=== PATIENT | male | born 1975 | race Caucasian/White ===

== ENCOUNTER 2020-12-03 11:42 | Outpatient (CLI) | payer OTHER, SELFPAY | END 2020-12-03 11:43 | disposition home or self-care (01) | LOC: ANHCOVIDVC 11:42 | PROVIDERS: PCP Family Medicine | DX: Z23 Encounter for immunization (principal) | CPT/HCPCS: 0001A; 91300 ==

== ENCOUNTER 2020-12-24 11:53 | Outpatient (CLI) | payer OTHER, SELFPAY | END 2020-12-24 11:54 | disposition home or self-care (01) | LOC: ANHCOVIDVC 11:53 | PROVIDERS: PCP Family Medicine | DX: Z23 Encounter for immunization (principal) | CPT/HCPCS: 0002A; 91300 ==

== ENCOUNTER 2022-08-24 16:55 | Emergency (ER) | payer OTHER, SELFPAY ==
[2022-08-24 17:06] VITALS: BP 135/104; PULSE 73; RESP 16; TEMP 37.3; O2SAT 100
--- NOTE | 2022-08-24 17:11 | ED.URI ---
HPI - URI/Sore Throat General Chief Complaint: Upper Respiratory Infection Stated Complaint: + COVID/SWOLLEN TONSILS Time Seen by Provider: 08/24/22 17:05 Source: patient Mode of arrival: ambulatory Limitations: no limitations History of Present Illness HPI Narrative: Patel is a 47-year-old male patient presenting to the clinic today with complaints of sore throat x2 days. He reports his sore throat developed yesterday. Tested positive for COVID on . He denies any current fever or chills. He does have slight cough and congestion MD elicited complaint: sore throat and nasal congestion Related Data Home Medications Medication Instructions Recorded Confirmed bupropion HCl 300 mg 24 hr tablet, 300 mg PO QAM 05/01/20 11/04/21 extended release (Wellbutrin XL) lithium carbonate 300 mg capsule 300 mg PO BID 05/01/20 11/04/21 buspirone 15 mg tablet 30 mg PO BID 05/06/21 11/04/21 Allergies Allergy/AdvReac Type Severity Reaction Status Date / Time No Known Allergies Allergy Verified 08/24/22 17:13 Review of Systems Review of Systems: Pertinent positives per HPI. Patient denies any fever, chills, rash, headache, visual changes, dizziness, shortness of breath, chest pain, palpitations, nausea, vomiting, diarrhea, constipation, abdominal pain, or any urinary issues. PMFSH Surgical History Surgical History [place] teeth extracted Family History Family History Father Family history of transient ischemic attacks, Onset Age: 40 Family history of cardiovascular disease Acute myocardial infarction, Onset Age: 50 Diabetes mellitus Depression Hypertension Family history of elevated blood lipids Cerebrovascular accident Family history of coronary artery disease Mother Patient's mother is in good health Social History Social History Smoking status: Never smoker Alcohol intake: current Comments At the time of my signature, I reviewed and agree with the nursing past medical, surgical, social, and family history. There is no relevant family history pertinent to the patient complaint. Exam Narrative: General: Well-developed, well nourished, in no apparent distress Head: Normocephalic, atraumatic Eyes: Pupils equally round and reactive to light bilaterally, EOM intact, sclera and conjunctive clear, no discharge, lids normal Ears: TMs intact and clear, ear canals clear, no drainage, grossly hearing normal. Nose: Nares patent, clear nasal discharge, no inflammation, no sinus tenderness. Mouth: Oral pharynx without lesions or masses, good dentition, MMM. Oropharynx red with unilateral tonsillar swelling without exudate, uvula midline Neck: Supple, trachea midline, enlargement of left anterior cervical nodes, no thyroid masses or goiter palpable. Cardio: Regular rate and rhythm, s1 and s2 normal, no murmur appreciated. Resp: Clear to auscultation bilaterally, no rhonchi, rales, wheezing or rubs Course Course Emergency Course: Portions of this record may have been created with voice recognition software. Level of Care: Express Care Visit Vital Signs Vital signs: Vital Signs Temperature 37.3 C 08/24/22 17:06 Pulse Rate 73 08/24/22 17:06 Respiratory Rate 16 08/24/22 17:06 Blood Pressure 135/104 H 08/24/22 17:06 Pulse Oximetry 100 08/24/22 17:06 Temperature 37.3 C 08/24/22 17:06 Pulse Rate 73 08/24/22 17:06 Respiratory Rate 16 08/24/22 17:06 Blood Pressure 135/104 H 08/24/22 17:06 Pulse Oximetry 100 08/24/22 17:06 Vital signs reviewed MDM - URI/Sore Throat MDM Narrative Medical decision making narrative: At the time of visit patient is resting comfortably on the exam table. He has unilateral tonsillar swelling/oropharynx redness. Uvula is midline. I suspect the patient has viral pharyngitis
== END 2022-08-24 17:25 | disposition home or self-care (01) ==
PROVIDERS: Emergency Provider Nurse Practitioner Family; PCP Family Medicine
DX: U07.1 COVID-19 (principal); J02.9 Acute pharyngitis, unspecified; E78.00 Pure hypercholesterolemia, unspecified; F41.9 Anxiety disorder, unspecified; F31.9 Bipolar disorder, unspecified
CPT/HCPCS: 87081; 87880; 99213; G0463

== ENCOUNTER 2022-08-25 06:41 | Emergency (ER) | payer OTHER, SELFPAY ==
--- NOTE | ~2022-08-25 | CT_ITS ---
EXAMINATION: CT soft tissue neck w con DATE: 08/25/2022 08:24 INDICATION: Uvula and tonsillar enlargement. TECHNIQUE: Computed tomography (CT) of the neck was performed with 75 mL Omnipaque-350 intravenous co ntrast. Automated exposure control and iterative reconstruction technique were employed. The dose-leslee gth product was 555.00 mGy-cm. COMPARISON: None FINDINGS: There is mucosal thickening in the paranasal sinuses. There is dependent fluid in left maxi llary sinus. There is enlargement of the uvula and left palatine tonsil. There is thickening of left lateral pharyngeal wall. There is low attenuation in left palatine tonsil, consistent with phlegmon. No definite drainable abscess. There are no pathologically enlarged lymph nodes. The cervical carotid arteries are normal. There is mild cervical spondylosis. IMPRESSION: 1. Phlegmon in left palatine tonsil and thickening of the uvula and left lateral pharyngeal wall. No drainable abscess. Reviewed, dictated and finalized at location A. [facility] IMPRESSION: 1. Phlegmon in left palatine tonsil and thickening of the uvula and left latera l pharyngeal wall. No drainable abscess.
[2022-08-25 06:48] VITALS: BP 145/85; PULSE 78; RESP 20; TEMP 36.6; O2SAT 95
[2022-08-25 07:29] VITALS: BP 131/93; PULSE 62; RESP 18; O2SAT 98
[2022-08-25 07:30] VITALS: O2SAT 99
--- NOTE | 2022-08-25 07:56 | ED.URI ---
HPI - URI/Sore Throat General Chief Complaint: Upper Respiratory Infection Stated Complaint: sore throat swollen throat Time Seen by Provider: 08/25/22 07:03 Source: patient, RN notes reviewed and old records reviewed Mode of arrival: ambulatory Limitations: no limitations History of Present Illness HPI Narrative: This is a 47 year old male who presents for evaluation of throat swelling. Patient states yesterday he noticed that his left tonsil and uvula were swollen so he went for evaluation at [facility]. He reports he had negative strep test so he was discharged home without any prescriptions. He has come this morning because his swelling has increased. HE also reports some difficulty breathing. He has pain with swallowing. He denies fever or chills. He tested positive for covid on . Related Data Home Medications Medication Instructions Recorded Confirmed bupropion HCl 300 mg 24 hr tablet, 300 mg PO QAM 05/01/20 08/24/22 extended release (Wellbutrin XL) lithium carbonate 300 mg capsule 300 mg PO BID 05/01/20 08/24/22 buspirone 15 mg tablet 30 mg PO BID 05/06/21 08/24/22 Allergies Allergy/AdvReac Type Severity Reaction Status Date / Time No Known Allergies Allergy Verified 08/25/22 07:32 Review of Systems Constitutional: Constitutional: Denies weakness ENT: Reports nasal congestion and Reports sore throat Cardiovascular: Cardiovascular: Denies syncope, Denies rapid heart rate, Denies irregular heart rhythm, Denies leg edema and Denies dyspnea Respiratory: Respiratory: Denies chest congestion, Reports cough, Denies hemoptysis, Denies excessive phlegm production and Denies dyspnea Gastrointestinal: Gastrointestinal: Denies abdominal pain, Denies hematochezia, Denies diarrhea and Denies vomiting Genitourinary: Genitourinary: Denies hematuria, Denies dysuria, Denies penile discharge and Denies testicular pain Musculoskeletal: Musculoskeletal: Denies joint swelling, Denies loss of height and Denies muscle weakness Neurologic: Denies syncope, Denies focal weakness and Denies weakness PMFSH Past Medical History Medical History (Updated 08/25/22 @ 11:10 by Faith Scott MD) Dyslipidemia [place] use Surgical History Surgical History [place] teeth extracted Family History Family History Father Family history of transient ischemic attacks, Onset Age: 40 Family history of cardiovascular disease Acute myocardial infarction, Onset Age: 50 Diabetes mellitus Depression Hypertension Family history of elevated blood lipids Cerebrovascular accident Family history of coronary artery disease Mother Patient's mother is in good health Social History Social History Smoking status: Never smoker Alcohol intake: current Exam Const: General: healthy appearing, no acute distress and alert Orientation/consciousness: patient oriented x3 Limitations: no limitations HENMT: Head: normal to inspection Mouth: Yes lip normal, Yes moist mucous membranes and Yes muffled voice Throat: abnormal tonsil on the left erythema and hypertrophy and uvular edema Other: no tongue swelling Eyes: Conjunctivae: conjunctivae normal EOM: EOMs intact bilaterally Neck: Neck: normal visual inspection Chest: Chest palpation & inspection: normal inspection of the chest Resp: Effort & Inspection: normal respiratory effort Auscultation: clear to auscultation bilaterally Cardio: Rate: regular rate Rhythm: regular rhythm Heart sounds: no murmurs GI: GI Palp: Yes Soft to palpation, No Tenderness to palpation present (GI) and No Guarding due to palpation present (GI) Auscultation: normal bowel sounds Skin: General skin exam: normal color Neuro: General: patient oriented x3, moves all extremities and CN's II-XI intact bilaterally Cr
[2022-08-25 08:04] LABS: Alanine Aminotransferase 28 U/L (6-50); Albumin Level 4.3 g/dL (3.5-5.1); Alkaline Phosphatase 74 U/L (38-126); Anion Gap 5 mmol/L (8-16); Aspartate Amino Transferase 22 U/L (17-59); Bilirubin,Total 0.8 mg/dL (0.2-1.3); Blood Urea Nitrogen 15 mg/dL (9-20); Calcium 8.9 mg/dL (8.4-10.2); Carbon Dioxide 30 mmol/L (22-30); Chloride 101 mmol/L (98-107); Estimated CRCL calculation 132 ml/min; Estimated Glomerular Filt Rate > 60; Glucose 106 mg/dL (65-110); Potassium 4.6 mmol/L (3.4-5.0); Sodium 136 mmol/L (137-145)
[2022-08-25 08:06] LABS: Basophils Percent Auto 0.3 % (0.2-1.2); Eosinophils Absolute Auto 0.2 K/mm3 (0-0.3); Eosinophils Percent Auto 2.3 % (0-4.4); Hematocrit 40.5 % (42.0-52.0); Hemoglobin 14.2 g/dL (14.0-18.0); Immature Granulocyte Absolute 0.03 K/mm3 (0.00-0.031); Immature Granulocyte Percent A 0.3 % (0-0.5); Lymphocytes Absolute Auto 2.74 K/mm3 (0.9-3.2); Mean Corpuscular HGB Conc 35.1 g/dl (32-36); Mean Corpuscular Hemoglobin 32.1 pg (26-34); Mean Corpuscular Volume 91.4 fl (80-100); Mean Platelet Volume 9.8 fl (7.4-10.4); Monocytes Absolute Auto 1.1 K/mm3 (0.1-0.6); Monocytes Percent Auto 11.1 % (2.6-8.5); Neutrophils Absolute Auto 5.7 K/mm3 (1.3-6.7); Platelet Count Result 262 k/mm3 (150-375); Red Blood Count 4.43 M/mm3 (4.6-6.20); Red Cell Distribution Width 11.7 % (11.5-14.5); White Blood Count 9.8 K/mm3 (4.5-10.0)
[2022-08-25 08:10] LABS: Lithium < 0.2 mmol/L (0.6-1.2)
[2022-08-25 08:19] LABS: Strep Group A RT-PCR NOT DETECTED (Negative)
[2022-08-25 08:25] LABS: Monoscreen Negative (Negative); Negative Monotest Control Negative (Negative); Positive Monotest Control Positive (Positive)
[2022-08-25] MEDS: KETOROLAC 30 MG/ML VIAL (*BKC) IV PUSH (08:27)
[2022-08-25] MEDS: AMPICILLIN SULB 3 GM/NS 100 ML 3 GM/100 ML VIAL IVPB (08:28)
== END 2022-08-25 11:56 | disposition home or self-care (01) ==
PROVIDERS: Emergency Provider General Practice; PCP Family Medicine
DX: K12.2 Cellulitis and abscess of mouth (principal); J03.90 Acute tonsillitis, unspecified; E78.5 Hyperlipidemia, unspecified
CPT/HCPCS: 36415; 70491; 80053; 80178; 85025; 86308; 87651; 96365; 96375; 99284; J0295; J1100; J1885; Q9967

== ENCOUNTER 2024-06-20 00:46 | Day surgery (SDC) | payer BC, SELFPAY ==
[2024-06-13 10:54] VITALS: BMI 34.4
--- NOTE | 2024-06-19 15:08 | P.PNAN_ITS ---
Anes - Eval Pre Procedure Procedure: Operation Date: 06/20/24 07:30 Proposed Procedures p Screening Colonoscopy - Octavio Pollock MD Date/Time: 06/19/24 15:08 Pre Op Diagnosis: Neoplasm screening Patient Data Age: 49 Gender: M Height: 1.96 m Weight: 132 kg Allergies Allergy/AdvReac Type Severity Reaction Status Date / Time No Known Allergies Allergy Verified 06/13/24 10:52 Home Medications Medication Instructions Recorded Confirmed Type bupropion HCl 300 mg 24 hr tablet, 300 mg PO QAM 05/01/20 06/13/24 History extended release (Wellbutrin XL) lithium carbonate 300 mg capsule 300 mg PO BID 05/01/20 06/13/24 History buspirone 15 mg tablet 30 mg PO BID 05/06/21 06/13/24 History escitalopram oxalate 20 mg tablet 20 mg PO DAILY 09/15/22 06/13/24 History simvastatin 20 mg tablet 20 mg PO DAILY #90 tabs 06/04/23 06/13/24 Rx tirzepatide (weight loss) 12.5 12.5 mg subcut WEEKLY 06/13/24 06/13/24 History mg/0.5 mL subcutaneous pen injector (Zepbound) tirzepatide (weight loss) 15 15 mg (0.5 mL) subcut WEEKLY #2 mL 06/16/24 Rx mg/0.5 mL subcutaneous pen injector (Zepbound) Patient hx anesthesia problems: none Family hx anesthesia problems: none Results Review: All pre-operative results and documents have been reviewed as part of the pre- operative evaluation. [facility] Past Medical History Medical History Dyslipidemia [place] use Surgical History Surgical History [place] teeth extracted Family History Family History Father Family history of transient ischemic attacks, Onset Age: 40 Family history of cardiovascular disease Acute myocardial infarction, Onset Age: 50 Diabetes mellitus Depression Hypertension Family history of elevated blood lipids Cerebrovascular accident Family history of coronary artery disease Mother Patient's mother is in good health Social History Social History Social History: Caffeine- coffee Smoking status: Never smoker Alcohol intake: current Drinks per week: 10 Substance use: never Substance use type: does not use Do You Feel Safe in your Home?: Yes Lack of Transportation: No Lack of Food: Never True Current Housing: I Have Housing Concerned About Future Housing: No Difficulty Paying Gas/Electric Bills: No Difficulty Paying for Meds: No Currently Unemployed: No Education: Master's Degree or Higher Difficulty w/ Childcare or Family Care: No Living arrangements: with family Occupation/Education: occupation Gender identity (if verbalized by the patient): Male Spiritual care concerns: No Agree to blood products: Yes Exam Day of Procedure 06/19/24 15:08
[2024-06-20 06:23] VITALS: BP 116/77; PULSE 58; RESP 16; TEMP 35.8; O2SAT 98; BMI 33.0
[2024-06-20] MEDS: LACTATED RINGERS 1,000 ML 150 ML IV CONT (06:32)
--- NOTE | 2024-06-20 07:21 | PM.HPGS ---
History of Present Illness History of Present Illness Consent: Risks, benefits, and alternatives have been discussed and questions answered. Patient agrees to proceed with procedure. Chief complaint: Neoplasm screening Narrative: Artem White is a 49 year old male here for first screening colonoscopy Review of Systems Review of Systems: All systems reviewed & are unremarkable except as noted in HPI and below PMFSH Past Medical History Medical History (Updated 06/20/24 @ 07:22 by Octavio Pollock MD) Colon cancer screening Dyslipidemia [place] use Surgical History Surgical History [place] teeth extracted Family History Family History Father Family history of transient ischemic attacks, Onset Age: 40 Family history of cardiovascular disease Acute myocardial infarction, Onset Age: 50 Diabetes mellitus Depression Hypertension Family history of elevated blood lipids Cerebrovascular accident Family history of coronary artery disease Mother Patient's mother is in good health Social History Social History Social History: Caffeine- coffee Smoking status: Never smoker Alcohol intake: current Drinks per week: 10 Substance use: never Substance use type: does not use Do You Feel Safe in your Home?: Yes Lack of Transportation: No Lack of Food: Never True Current Housing: I Have Housing Concerned About Future Housing: No Difficulty Paying Gas/Electric Bills: No Difficulty Paying for Meds: No Currently Unemployed: No Education: Master's Degree or Higher Difficulty w/ Childcare or Family Care: No Living arrangements: with family Occupation/Education: occupation Gender identity (if verbalized by the patient): Male Spiritual care concerns: No Agree to blood products: Yes Meds Home Medications and Allergies Home Medications Medication Instructions Recorded Confirmed Type bupropion HCl 300 mg 24 hr tablet, 300 mg PO QAM 05/01/20 06/20/24 History extended release (Wellbutrin XL) lithium carbonate 300 mg capsule 300 mg PO BID 05/01/20 06/20/24 History buspirone 15 mg tablet 30 mg PO BID 05/06/21 06/20/24 History escitalopram oxalate 20 mg tablet 20 mg PO DAILY 09/15/22 06/20/24 History simvastatin 20 mg tablet 20 mg PO DAILY #90 tabs 06/04/23 06/20/24 Rx tirzepatide (weight loss) 12.5 12.5 mg subcut WEEKLY 06/13/24 06/20/24 History mg/0.5 mL subcutaneous pen injector (Zepbound) tirzepatide (weight loss) 15 15 mg (0.5 mL) subcut WEEKLY #2 mL 06/16/24 06/20/24 Rx mg/0.5 mL subcutaneous pen injector (Zepbound) Allergies Allergy/AdvReac Type Severity Reaction Status Date / Time No Known Allergies Allergy Verified 06/20/24 06:20 Vital Signs Vital Signs - 24 hr 06/20/24 06:23 Temperature 96.4 F L Pulse Rate 58 L Respiratory Rate 16 Blood Pressure 116/77 Pulse Oximetry 98 Oxygen Delivery Room Air Exam Const: General: comfortable and no acute distress HENMT: Face/Nose/Sinus: Normal nares present Eyes: General: appearance normal, both eyes and all related structures Neck: Neck: no JVD Resp: Auscultation: clear to auscultation bilaterally Cardio: Rate: regular rate Rhythm: regular rhythm GI: Inspection: non-distended GI Palp: Yes Soft to palpation Skin: General skin exam: normal color Neuro: General: gait normal Speech: normal speech Extrem: General: normal to inspection Psych: Mental Status: mental status grossly normal Assessment and Plan Assessment and plan (1) Colon cancer screening: Code(s): Z12.11 - Encounter for screening for malignant neoplasm of colon Status: Acute Assessment and Plan: colonoscopy
[2024-06-20 07:48] VITALS: BP 103/65; PULSE 64; RESP 11; O2SAT 97
[2024-06-20 07:58] VITALS: BP 98/66; PULSE 58; RESP 18; O2SAT 99
[2024-06-20 08:08] VITALS: BP 118/77; PULSE 56; RESP 16; O2SAT 100
== END 2024-06-20 08:20 | disposition home or self-care (01) ==
PROVIDERS: PCP Family Medicine; Visit Provider Internal Medicine Gastroenterology
PROC: 0DJD8ZZ Inspection of Lower Intestinal Tract, Via Natural or Artificial Opening Endoscopic (ICD-10-PCS; CPT 45378; principal; 2024-06-20 07:30)
DX: Z12.11 Encounter for screening for malignant neoplasm of colon (principal); D12.3 Benign neoplasm of transverse colon; K64.8 Other hemorrhoids; E78.5 Hyperlipidemia, unspecified; Z79.85 Long-term (current) use of injectable non-insulin antidiabetic drugs; Z98.890 Other specified postprocedural states; Z82.49 Family history of ischemic heart disease and other diseases of the circulatory system
CPT/HCPCS: 45385; 88305; J2003; J2704; J7120